=== PATIENT | male | born 1950 | race Caucasian/White ===

== ENCOUNTER 2017-11-11 08:03 | Day surgery (SDC) | payer BC, OTHER ==
[2017-11-10 15:14] VITALS: BMI 24.3
[2017-11-11] MEDS ORDERED: LIDOCAINE HCL 2% (20ML MULTI-DOSE VIAL) NR ONE (09:35)
[2017-11-11] MEDS ORDERED: BUPIVACAINE HCL/PF 0.25% (2.5MG/ML) 10 ML VIAL ONE (09:37)
[2017-11-11] MEDS ORDERED: BUPIVACAINE HCL/PF 0.5% (5MG/ML) 10 ML VIAL ONE (09:38)
[2017-11-11] MEDS ORDERED: BETAMET ACET/BETAMET NA PH 30 MG/5 ML VIAL ONE (09:39)
[2017-11-11] MEDS ORDERED: oxyCODONE HCL 5 MG TABLET PO PRN ×2 (09:39)
[2017-11-11] MEDS ORDERED: BUPIVACAINE HCL/PF 0.25% (2.5MG/ML) 10 ML VIAL IJ ONE (10:00)
[2017-11-11] MEDS ORDERED: LIDOCAINE 1% P/F 10 MG/ML VIAL INF ONE (10:00)
[2017-11-11] MEDS ORDERED: BETAMET ACET/BETAMET NA PH 30 MG/5 ML VIAL IM ONE (10:00)
[2017-11-11] MEDS ORDERED: IOHEXOL 180 MG/1 ML ML IJ ONE (10:00)
[2017-11-11 11:28] VITALS: BP 130/80; TEMP 98.5
[2017-11-11 11:31] VITALS: PULSE 56
--- NOTE | 2017-11-19 08:33 | OP ---
DATE OF OPERATION: 11/11/2017 PREOPERATIVE DIAGNOSIS: Right foot complex regional pain syndrome POSTOPERATIVE DIAGNOSIS: Right foot complex regional pain syndrome PROCEDURE: Lumbar sympathetic block on the right side at L3 level. PROCEDURE: I discussed with him the risks, benefits and alternative treatment. The patient understood, agreed and signed the written consent. The risks are not limited to infection, fever, injury to the nerves or blood vessels, hematoma, anything can happened. The patient was placed in the prone position with head, abdomen and legs supported with pillows. The lumbosacral area was prepped and draped with Betadine x3 and alcohol x3 as well. The level was identified. In the oblique position, the anterior margin of the lumbar vertebra was identified. At this level, 3 mL of 1 % lidocaine were infiltrated. 22 G 5 " spinal needle was used to approach the vertebral bone. The location of the needle was confirmed with AP oblique and lateral views. Then, 3 mL of Omnipaque 180 were injected to see the flow of dye into the paraspinal muscles. Then, 1 mL of 1% lidocaine was infiltrated as a test dose, no change was observed. After that, 10 mL of 0.25% Marcaine were injected. There were no vital changes. The needle was withdrawn. Bleeding was checked. A sterile dressing bandage was placed. The patient was transferred to the recovery room. There was no immediate complication. He was feeling warmth of the right foot. The patient was explained and he was told to apply ice. If there are any problems, call me or report to the ER. The patient was discharged as per ASU criteria. The patient was given a followup appointment in 2 weeks. SHARON PETERSEN M.D. [id number] MTDD
== END 2017-11-11 11:30 | disposition home or self-care (01) ==
LOC: JASU-SURG 08:03
PROVIDERS: ATTEND Physical Medicine & Rehabilitation
PROC: 3E0S33Z Introduction of Anti-inflammatory into Epidural Space, Percutaneous Approach (ICD-10-PCS; 2017-11-11)
PROC: 3E0S3BZ Introduction of Anesthetic Agent into Epidural Space, Percutaneous Approach (ICD-10-PCS; principal; 2017-11-11 09:30)
DX: G90.521 Complex regional pain syndrome I of right lower limb (principal); M54.16 Radiculopathy, lumbar region; M51.26 Other intervertebral disc displacement, lumbar region
CPT/HCPCS: 76000-TC-FY

== ENCOUNTER 2023-03-14 15:52 | Emergency (ER) | payer OTHER, BC ==
[2023-03-14 16:08] VITALS: BMI 25.9
[2023-03-14] MEDS ORDERED: ACETAMINOPHEN 1000 MG/100 ML BAG IVPB ONE (16:38)
[2023-03-14] MEDS ORDERED: KETOROLAC TROMETHAMINE 15 MG/ML VIAL IVPUSH ONE ×2 (16:38→20:36)
[2023-03-14] MEDS ORDERED: ONDANSETRON 4 MG/2 ML VIAL IVPUSH ONE ×2 (16:38→16:41)
[2023-03-14] MEDS ORDERED: morphine CARPU-JECT 8 MG/1 ML DISP.SYRIN IVPUSH ONE (16:41)
[2023-03-14] MEDS ORDERED: ONDANSETRON 4 MG/2 ML VIAL ONE ×2 (16:50→17:22)
[2023-03-14] MEDS ORDERED: ACETAMINOPHEN INJECTION 100 ML IVPB ONE (16:50)
[2023-03-14] MEDS ORDERED: SODIUM CHLORIDE 500 ML IV STA ×3 (16:56→19:46)
[2023-03-14] MEDS ORDERED: KETOROLAC TROMETHAMINE 15 MG/ML VIAL ONE ×2 (17:22→20:46)
[2023-03-14 17:25] LABS: BASO % 0.3 % (0-2.0); EOS % 0.2 % (0-4.5); HEMATOCRIT 44.5 % (35.4-49); HEMOGLOBIN 15.2 GM/dL (11.7-16.9); LYMPH % 7.7 % (8-40); MCH 30.5 pg (25.7-33.7); MCHC 34.1 g/dl (32.0-35.9); MEAN CELL VOLUME 89.5 fl (80-96); MEAN PLT VOLUME 9.8 fl (7.5-11.1); MONO % 2.9 % (3.8-10.2); NEUT % 88.9 % (42.8-82.8); PLATELET COUNT 272 10^3/uL (134-434); RBC 4.97 M/mm3 (4.00-5.60); RDW 14.2 % (11.9-15.9)
[2023-03-14 17:34] LABS: CHLORIDE 107 mmol/L (98-107); SODIUM 136 mmol/L (136-145)
[2023-03-14 17:36] LABS: CALCIUM 9.5 mg/dL (8.5-10.1)
[2023-03-14 17:37] LABS: ALBUMIN 3.6 g/dl (3.4-5.0); BLOOD UREA NITROGEN 23.8 mg/dL (7-18); CO2 24 mmol/L (21-32); GLUCOSE,RANDOM 201 mg/dL (74-106)
[2023-03-14 17:40] LABS: CREATININE 1.4 mg/dL (0.55-1.3); SGOT/AST 67 U/L (15-37); SGPT/ALT 31 U/L (13-61)
[2023-03-14 17:45] LABS: URINE APPEARANCE CLEAR; URINE BILIRUBIN NEGATIVE (NEGATIVE); URINE COLOR YELLOW; URINE GLUCOSE (UA) TRACE (NEGATIVE); URINE KETONE NEGATIVE (NEGATIVE); URINE LEUK ESTERASE NEGATIVE (NEGATIVE); URINE NITRITE NEGATIVE (NEGATIVE); URINE PROTEIN NEGATIVE (NEGATIVE); URINE UROBILINOGEN 0.2 mg/dL (0.2-1.0)
[2023-03-14 18:25] LABS: ACTIVATED PTT 29.1 SECONDS (25.2-36.5); INR 1.01 (0.83-1.09); PROTHROMBIN TIME (PATIENT) 11.7 SEC (9.7-13.0)
[2023-03-14 18:33] LABS: BILIRUBIN,TOTAL 0.8 mg/dL (0.2-1); TOT PROT 7.4 g/dl (6.4-8.2)
[2023-03-14 18:34] LABS: ALK PHOS 73 U/L (45-117)
[2023-03-14 18:55] LABS: ANION GAP 5 mmol/L (4-13); POTASSIUM 6.9 mmol/L (3.5-5.1)
[2023-03-14 18:57] LABS: LACTIC ACID 2.3 mmol/L (0.4-2.0)
[2023-03-14] MEDS ORDERED: TAMSULOSIN HCL 0.4 MG CAP PO ONE (19:46)
[2023-03-14] MEDS ORDERED: TAMSULOSIN HCL 0.4 MG CAP ONE (19:50)
[2023-03-14 20:14] LABS: POTASSIUM 4.5 mmol/L (3.5-5.1)
[2023-03-14 20:17] LABS: BLOOD UREA NITROGEN 23.6 mg/dL (7-18); CALCIUM 8.5 mg/dL (8.5-10.1)
[2023-03-14 20:21] LABS: CREATININE 1.3 mg/dL (0.55-1.3)
[2023-03-14 20:30] LABS: LACTIC ACID 3.3 mmol/L (0.4-2.0)
[2023-03-14] MEDS ORDERED: SODIUM CHLORIDE 0.9% 500 ML INFUS.BAG IV ONE (20:35)
[2023-03-14 22:15] LABS: LACTIC ACID 2.1 mmol/L (0.4-2.0)
[2023-03-14 22:24] VITALS: TEMP 98.1
[2023-03-14 22:53] VITALS: BP 129/61; PULSE 54; RESP 15
== END 2023-03-14 23:05 | disposition home or self-care (01) ==
LOC: JER 15:52
PROC: 3E033NZ Introduction of Analgesics, Hypnotics, Sedatives into Peripheral Vein, Percutaneous Approach (ICD-10-PCS; principal; 2023-03-14)
PROC: 3E0333Z Introduction of Anti-inflammatory into Peripheral Vein, Percutaneous Approach (ICD-10-PCS; 2023-03-14)
PROC: 3E033GC Introduction of Other Therapeutic Substance into Peripheral Vein, Percutaneous Approach (ICD-10-PCS; 2023-03-14)
PROC: 3E033GC Introduction of Other Therapeutic Substance into Peripheral Vein, Percutaneous Approach (ICD-10-PCS; 2023-03-14)
PROC: 3E0333Z Introduction of Anti-inflammatory into Peripheral Vein, Percutaneous Approach (ICD-10-PCS; 2023-03-14)
PROC: 3E0337Z Introduction of Electrolytic and Water Balance Substance into Peripheral Vein, Percutaneous Approach (ICD-10-PCS; 2023-03-14)
PROC: 3E0337Z Introduction of Electrolytic and Water Balance Substance into Peripheral Vein, Percutaneous Approach (ICD-10-PCS; 2023-03-14)
PROC: 3E0337Z Introduction of Electrolytic and Water Balance Substance into Peripheral Vein, Percutaneous Approach (ICD-10-PCS; 2023-03-14)
DX: R10.32 Left lower quadrant pain (principal); M54.9 Dorsalgia, unspecified; R11.0 Nausea; N20.0 Calculus of kidney
CPT/HCPCS: 36415; 74177-TC; 80048; 80053; 81003; 83605; 83690; 85025; 85610; 85730; 87086; 93005; 93010; 99285-25